=== PATIENT | female | born 1985 | race Hispanic/Latino ===

== ENCOUNTER 2020-05-25 00:33 | Observation (INO) | payer BC ==
[~2020-05-25] VITALS: Ht 172.7 cm; Wt 84.4 kg
[2020-05-25 01:13] LABS: APPEARANCE,URINE Clear (CLEAR); BILIRUBIN,URINE Negative (NEGATIVE); COLOR,URINE Yellow (YELLOW); GLUCOSE, URINE (UA) Negative (NEGATIVE); KETONES,URINE Negative (NEGATIVE); LEUKOCYTE ESTERASE ,URINE Large (NEGATIVE); NITRATE,URINE Negative (NEGATIVE); OCCULT BLOOD,URINE Moderate (NEGATIVE); PH,URINE 6.5 (5.0-8.0); PROTEIN,URINE Negative (NEGATIVE); UROBILINOGEN,URINE 0.2 mg/dL (0.2-1.0)
[2020-05-25 01:20] LABS: BACTERIA,URINE Moderate /HPF (None Seen); RBC,URINE None Seen /HPF (0-1); SQUAMOUS EPITHELIAL CELL,UR Moderate /HPF (0-2)
[2020-05-25 01:21] LABS: AMPHET/METH SCREEN,URINE NEGATIVE (NEGATIVE); BARBITURATE SCREEN, URINE NEGATIVE (NEGATIVE); BENZODIAZEPINES SCREEN,URINE NEGATIVE (NEGATIVE); CANNABINOID SCREEN,URINE NEGATIVE (NEGATIVE); COCAINE SCREEN,URINE NEGATIVE (NEGATIVE); OPIATE SCREEN,URINE NEGATIVE (NEGATIVE); PHENCYCLIDINE SCREEN,URINE NEGATIVE (NEGATIVE)
[2020-05-25] MEDS ORDERED: LACTATED RINGERS 1000ML 1,000 ML IV PRN (01:45)
[2020-05-25] MEDS ORDERED: LACTATED RINGERS 1000ML 1,000 ML IV SCH (01:45)
[2020-05-25 01:50] LABS: HEMATOCRIT 36.9 % (36-48); MEAN CORPUSCULAR HEMOGLOBIN 32.2 pg (27.0-33.0); RED BLOOD CELL COUNT(AUTO) 4.01 MIL/uL (4.00-5.50); RED CELL DISTRIBUTION WIDTH 12.5 % (11.0-15.5); WHITE BLOOD COUNT (AUTO) 15.5 K/uL (4.8-10.8)
[2020-05-25] MEDS ORDERED: AMPICILLIN 2GM+NS 100ML 100 ML IV SCH (02:00)
[2020-05-25 02:31] VITALS: BP 107/59
[2020-05-25] MEDS ORDERED: AMPICILLIN 1GM+NS 50ML 50 ML IV SCH (06:00)
[2020-05-25 09:18] LABS: RAPID PLASMA REAGIN NONREACTIVE (NONREACTIVE)
[2020-05-26] MEDS ORDERED: PREN-188 PO (01:45)
[2020-05-26 06:12] LABS: HEPATITIS Bs ANTIGEN SCREEN P Negative (Negative)
== END 2020-05-25 08:05 | disposition home or self-care (01) ==
LOC: EDH 00:33 → LDH 00:34 → INTOOBSV 01:34 → OBSVTOIN 01:34
PROVIDERS: ADMIT Obstetrics & Gynecology; ATTEND Obstetrics & Gynecology
DX: O62.9 Abnormality of forces of labor, unspecified (principal); Z3A.38 38 weeks gestation of pregnancy
CPT/HCPCS: 36415; 59025; 80305; 81001; 85027; 86592; 86701; 86850; 86900; 86901; 87088; 87340; 87390; 96361 ×2; 96365; 96366; 99283; G0378 ×7; J0290 ×2; J7120 ×3; 96360

== ENCOUNTER 2020-05-25 15:09 | Inpatient (IN) | payer BC ==
[~2020-05-25] VITALS: Ht 172.7 cm; Wt 71.2 kg
[2020-05-25] MEDS ORDERED: NALOXONE HCL 0.4 MG/1 ML ML IV PRN (16:15)
[2020-05-25] MEDS ORDERED: LACTATED RINGERS 1000ML 1,000 ML IV PRN (16:15)
[2020-05-25] MEDS ORDERED: MEPERIDINE-PF 50 MG/ML SYG IVP PRN (16:15)
[2020-05-25] MEDS ORDERED: OXYTOCIN-LR 20 UNITS/1000 ML 1,000 ML IV SCH (16:15)
[2020-05-25] MEDS ORDERED: EPHEDRINE SULFATE 50 MG/ML AMPULE IVP PRN (16:15)
[2020-05-25] MEDS ORDERED: LACTATED RINGERS 500 ML 500 ML IV PRN (16:15)
[2020-05-25] MEDS ORDERED: MEPERIDINE-PF 50 MG/ML SYG ONE (16:29)
[2020-05-25] MEDS ORDERED: LACTATED RINGERS 1000ML 1,000 ML IV ONE (16:29)
[2020-05-25] MEDS ORDERED: AMPICILLIN 2GM+NS 100ML 100 ML IV ONE (16:50)
[2020-05-25] MEDS ORDERED: AMPICILLIN 2GM+NS 100ML 100 ML IV SCH (17:00)
[2020-05-25] MEDS ORDERED: PROMETHAZINE HCL 25 MG/ML 1ML AMPULE IM SCH (18:25)
[2020-05-25] MEDS: AMPICILLIN 1GM+NS 50ML 50 ML IV SCH (20:59)
[2020-05-25 21:06] VITALS: BP 115/59
[2020-05-26] MEDS: AMPICILLIN 1GM+NS 50ML 50 ML IV SCH ×2 (00:27→21:00)
[2020-05-26] MEDS ORDERED: PREN-188 PO (01:45)
[2020-05-26] MEDS ORDERED: LIDOCAINE HCL 1% 20 ML VIAL ONE (04:16)
[2020-05-26] MEDS ORDERED: WITCH HAZEL 1 PAD TP PRN (05:15)
[2020-05-26] MEDS ORDERED: ACETAMINOPHEN 325 MG TAB PO PRN (05:15)
[2020-05-26] MEDS ORDERED: ACETAMINOPHEN WITH CODEINE 1 TAB TAB PO PRN (05:15)
[2020-05-26] MEDS ORDERED: LANOLIN 30GM OINTMENT TP PRN (05:15)
[2020-05-26] MEDS ORDERED: DIPH,PERTUSS(ACELL),TET VAC/PF 0.5 ML VIAL IM PRN (05:15)
[2020-05-26] MEDS ORDERED: OXYTOCIN-LR 20 UNITS/1000 ML 1,000 ML IV SCH (05:15)
[2020-05-26] MEDS ORDERED: BENZOCAINE/LANOLIN/ALOE VERA 60 ML AEROSOL TP PRN (05:15)
[2020-05-26] MEDS ORDERED: MEASLES/MUMPS/RUBELLA VACCINE, LIVE 0.5 ML/VIAL SQ PRN (05:15)
[2020-05-26] MEDS ORDERED: MAGNESIUM 4GM PREMIX 100ML 100 ML IV PRN (07:00)
[2020-05-26] MEDS ORDERED: LACTATED RINGERS 1000ML 1,000 ML IV SCH (07:00)
[2020-05-26] MEDS ORDERED: MAGNESIUM SULFATE 40GM/1000ML 1,000 ML IV PRN (07:00)
[2020-05-26] MEDS ORDERED: CALCIUM GLUC 1GM/10ML VIAL IV PRN (07:00)
[2020-05-26 09:29] VITALS: BP 118/67
[2020-05-26 12:30] VITALS: BP 120/72
[2020-05-26 16:22] VITALS: BP 121/75
[2020-05-26] MEDS: IBUPROFEN 600 MG TABLET PO PRN (16:28)
[2020-05-26 19:37] VITALS: BP 107/64
[2020-05-26] MEDS: DOCUSATE SODIUM 100 MG CAP PO SCH (21:28)
[2020-05-26 23:36] VITALS: BP 114/63
[2020-05-27 03:52] VITALS: BP 124/73
[2020-05-27 06:31] LABS: HEMATOCRIT 33.2 % (36-48); MEAN CORPUSCULAR HEMOGLOBIN 32.2 pg (27.0-33.0); MEAN CORPUSCULAR HGB CONC 34.6 g/dL (32.0-36.0); RED BLOOD CELL COUNT(AUTO) 3.57 MIL/uL (4.00-5.50); RED CELL DISTRIBUTION WIDTH 12.8 % (11.0-15.5); WHITE BLOOD COUNT (AUTO) 13.2 K/uL (4.8-10.8)
[2020-05-27 08:10] VITALS: BP 126/72
[2020-05-27] MEDS ORDERED: IBUP-2071 PO (08:34)
[2020-05-27] MEDS ORDERED: DOCU-116 PO (08:34)
[2020-05-27] MEDS: DOCUSATE SODIUM 100 MG CAP PO SCH (09:23)
[2020-05-27] MEDS: IBUPROFEN 600 MG TABLET PO PRN (09:25)
[2020-05-27 11:08] VITALS: BP 121/68
== END 2020-05-27 13:15 | disposition home or self-care (01) | DRG 807 ==
LOC: EDH 15:09 → OBSVTOIN 15:16 → LDH 15:16 → WSH 05-26 10:26
PROVIDERS: ADMIT Obstetrics & Gynecology; ATTEND Obstetrics & Gynecology
PROC: 10E0XZZ Delivery of Products of Conception, External Approach (ICD-10-PCS; principal; 2020-05-26)
PROC: 3E0R3BZ Introduction of Anesthetic Agent into Spinal Canal, Percutaneous Approach (ICD-10-PCS; 2020-05-26)
PROC: 00HU33Z Insertion of Infusion Device into Spinal Canal, Percutaneous Approach (ICD-10-PCS; 2020-05-26)
PROC: 3E0234Z Introduction of Serum, Toxoid and Vaccine into Muscle, Percutaneous Approach (ICD-10-PCS; 2020-05-26)
PROC: 3E0134Z Introduction of Serum, Toxoid and Vaccine into Subcutaneous Tissue, Percutaneous Approach (ICD-10-PCS; 2020-05-26)
DX: O99.824 Streptococcus B carrier state complicating childbirth (principal); Z37.0 Single live birth; Z3A.37 37 weeks gestation of pregnancy; Z23 Encounter for immunization
CPT/HCPCS: 36415; 85027; A4314; G0378; J0290; J2175; J2590; J7120